=== PATIENT | female | born 1960 | race Caucasian/White ===

== ENCOUNTER 2020-06-03 17:32 | Emergency (ER) | payer MEDICAID ==
[~2020-06-03] VITALS: Ht 165.1 cm; Wt 54.4 kg
[2020-06-03] MEDS ORDERED: LIRA0.6P2 SQ ×2 (17:48→19:42)
[2020-06-03] MEDS ORDERED: INSULIN REGULAR, HUMAN 300 UNIT/3 ML VIAL IV ONE (18:00)
[2020-06-03] MEDS ORDERED: IV NORMAL SALINE 1000 ML BAG IV ONE (18:00)
[2020-06-03] MEDS ORDERED: INSULIN REGULAR, HUMAN 100 UNIT in IV NORMAL SALINE 100 ML IV ONE ×2 (18:00)
[2020-06-03] MEDS ORDERED: LOSA25TA27 PO (18:13)
[2020-06-03] MEDS ORDERED: ATOR80TA PO (18:13)
[2020-06-03] MEDS ORDERED: METF-440 PO (18:13)
[2020-06-03] MEDS ORDERED: METO-357 PO (18:13)
[2020-06-03] MEDS ORDERED: CHOL10005 PO (18:13)
[2020-06-03] MEDS ORDERED: ESCI10TA PO (18:13)
[2020-06-03] MEDS ORDERED: EMPA1TAB7 PO (18:13)
[2020-06-03 18:15] LABS: BASOPHILS # (AUTO) 0.1 K/uL (0.0-8.0); BASOPHILS % (AUTO) 0.8 % (0.0-2.0); EOSINOPHILS # (AUTO) 0.1 K/uL (0.0-0.7); EOSINOPHILS % (AUTO) 1.4 % (0.0-7.0); HEMATOCRIT 43.7 % (31.2-41.9); LYMPHOCYTES # (AUTO) 1.6 K/uL (20.0-40.0); LYMPHOCYTES % (AUTO) 24.8 % (20.5-51.5); MEAN CORPUSCULAR HEMOGLOBIN 30.8 uug (24.7-32.8); MEAN CORPUSCULAR HGB CONC 34 g/dL (32.3-35.6); MEAN CORPUSCULAR VOLUME 89.9 fL (75.5-95.3); MONOCYTES # (AUTO) 0.6 K/uL (2.0-10.0); MONOCYTES % (AUTO) 8.8 % (0.0-11.0); NEUTROPHILS # (AUTO) 4.1 K/uL (1.8-8.9); NEUTROPHILS % (AUTO) 64.2 % (38.5-71.5); PLATELET COUNT (AUTO) 162 K/uL (179-408); RED BLOOD CELL COUNT(AUTO) 4.86 MIL/uL (3.63-4.92); WHITE BLOOD COUNT (AUTO) 6.4 K/uL (3.8-11.8)
[2020-06-03] MEDS ORDERED: INSULIN REGULAR, HUMAN 300 UNIT/3 ML VIAL ONE (18:22)
[2020-06-03 18:30] LABS: BILIRUBIN,DIRECT 0.1 mg/dL (0.0-0.2); BILIRUBIN,TOTAL 0.5 mg/dL (0.2-1.0); CREATININE 0.9 mg/dL (0.6-1.3); TOTAL PROTEIN, SERUM 7.1 g/dL (6.4-8.2)
[2020-06-03] MEDS ORDERED: POTASSIUM CHLORIDE 20 MEQ TAB.PRT.SR PO ONE (19:00)
[2020-06-03] MEDS ORDERED: POTASSIUM CHLORIDE 20 MEQ TAB.PRT.SR ONE (19:09)
[2020-06-03] MEDS ORDERED: INSU100V7 SQ (19:42)
--- NOTE | 2020-06-03 19:50 | NUR ---
DR RENTERIA MADE PATIENT AWARE OF TEST RESULTS.
--- NOTE | 2020-06-03 19:55 | NUR ---
Patient discharged to home in stable condition. Written and verbal after care instructions given. Patient verbalizes understanding of instructions. Stressed follow up or return to ER for worsening s/s.
[2020-06-03 20:07] VITALS: BP 109/61
== END 2020-06-03 20:08 | disposition home or self-care (01) ==
LOC: ER 17:39
DX: E11.65 Type 2 diabetes mellitus with hyperglycemia (principal); Z79.4 Long term (current) use of insulin; I10 Essential (primary) hypertension; Z79.899 Other long term (current) drug therapy; Z20.822 Contact with and (suspected) exposure to COVID-19
CPT/HCPCS: 36415; 71045; 80048; 80076; 82962 ×2; 83690; 85025; 87426; 93005; 96361; 96374; 99285; J1815 ×2; U0003; A4663; J3490; J7030

== ENCOUNTER 2021-03-07 19:19 | Emergency (ER) | payer MEDICAID ==
[~2021-03-07] VITALS: Ht 165.1 cm; Wt 74.8 kg
[~2021-03-07 19:19] MED LIST: ATOR80TA PO; CHOL10005 PO; EMPA1TAB7 PO; ESCI10TA PO; INSU100V7 SQ; LIRA0.6P2 SQ; LOSA25TA27 PO; METF-440 PO; METO-357 PO
--- NOTE | 2021-03-07 21:33 | NUR ---
PATIENT WALKED INTO C/O ABDOMINAL PAIN, NAUSEA, CHILLS AND HOT FLASHES THAT STARTED 2 DAYS AGO.
[2021-03-07] MEDS ORDERED: IV NORMAL SALINE 1000 ML BAG IV ONE (21:45)
[2021-03-07 21:51] LABS: HEMATOCRIT 44.3 % (31.2-41.9); MEAN CORPUSCULAR HEMOGLOBIN 29.7 uug (24.7-32.8); MEAN CORPUSCULAR VOLUME 88.6 fL (75.5-95.3); PLATELET COUNT (AUTO) 203 K/uL (179-408)
[2021-03-07 21:54] LABS: POTASSIUM 4.7 mmol/L (3.5-5.1)
[2021-03-07 22:00] LABS: BILIRUBIN,DIRECT 0.2 mg/dL (0.0-0.2); BILIRUBIN,TOTAL 0.7 mg/dL (0.2-1.0); TOTAL PROTEIN, SERUM 7.8 g/dL (6.4-8.2)
--- NOTE | 2021-03-07 22:15 | NUR ---
Dr. Best on bedside for MSE.
[2021-03-07] MEDS ORDERED: MORPHINE SULFATE 4 MG/1 ML DISP.SYRIN IV ONE (22:30)
[2021-03-07] MEDS ORDERED: ONDANSETRON 4 MG/2 ML VIAL IV ONE (22:30)
[2021-03-07] MEDS ORDERED: MORPHINE SULFATE 4 MG/1 ML DISP.SYRIN ONE (22:36)
[2021-03-07] MEDS ORDERED: ONDANSETRON 4 MG/2 ML VIAL ONE (22:36)
[2021-03-08] MEDS ORDERED: FAMOTIDINE. 20 MG/2 ML VIAL IV ONE (00:15)
[2021-03-08 00:31] LABS: *BILIRUBIN,URIN NEGATIVE (NEGATIVE); *BLOOD, URINE 1+ (NEGATIVE); *CLARITY,URINE CLEAR (CLEAR); *COLOR,URINE YELLOW (YELLOW); *KETONES,URINE TRACE (NEGATIVE); *UROBILINOGEN,URINE 0.2 E.U./dl (NORMAL); LEUKOCYTE ESTERASE ,URINE NEGATIVE (NEGATIVE); NITRITE, URINE NEGATIVE (NEGATIVE); UGLUCOSE 3+ (NEGATIVE)
--- NOTE | 2021-03-08 00:37 | NUR ---
Pt requested for some water, Okayed by Dr. Best and given.
[2021-03-08 00:44] LABS: BACTERIA,URINE NONE SEEN /HPF (NONE SEEN); SQUAMOUS EPITHELIAL CELL,UR NONE SEEN /HPF (NONE SEEN); WBC,URINE NONE SEEN /HPF (0-3)
--- NOTE | 2021-03-08 01:51 | NUR ---
Spoke to Gillina/Safia and given needed informations.
[2021-03-08] MEDS ORDERED: ONDANSETRON 4 MG/2 ML VIAL IV ONE (02:00)
[2021-03-08] MEDS ORDERED: FENTANYL CITRATE 100 MCG/2 ML AMPUL IV ONE (02:00)
[2021-03-08] MEDS ORDERED: FENTANYL CITRATE 100 MCG/2 ML AMPUL ONE (02:08)
[2021-03-08] MEDS ORDERED: GUAIFENESIN/DEXTROMETHORPHAN 5 ML UDC ONE (03:29)
--- NOTE | 2021-03-08 03:38 | NUR ---
Telephone call from Gillian Abad CM. Update given and stated she will try to call Dr. Pepper again to call Dr. Best here. Plan to admit patient to [facility].
--- NOTE | 2021-03-08 04:05 | NUR ---
Dr. Best on bedside.
--- NOTE | 2021-03-08 04:10 | NUR ---
Telephine call to Gillian Abad and informed her that we are still awaiting Dr Pepper to call. Jenniffer will page Dr. Pepper again. Awaiting for call back.
--- NOTE | 2021-03-08 04:36 | NUR ---
Dr. Pepper foundation engineer with Dr. Best.
--- NOTE | 2021-03-08 04:42 | NUR ---
Dr. Best on bedside.
[2021-03-08] MEDS ORDERED: IV NORMAL SALINE 250 ML IV ONE (05:03)
[2021-03-08] MEDS ORDERED: SWABABLE VALVE TRANSFER SET EA MC ONE (05:03)
[2021-03-08] MEDS ORDERED: IOHEXOL 300MG/ML 100 ML INFUS..BTL ONE (05:03)
--- NOTE | 2021-03-08 05:14 | NUR ---
Back from CT.
--- NOTE | 2021-03-08 05:21 | NUR ---
Pt requested for orange juice and given.
--- NOTE | 2021-03-08 06:16 | NUR ---
Telephone call to DEQUAN mooney requested to page Dr. Pepper and states understanding.
--- NOTE | 2021-03-08 06:25 | NUR ---
Dr Best station supervisor with Dr Pepper.
--- NOTE | 2021-03-08 06:28 | NUR ---
Telephone call to DEQUAN Abad and informed that pt will be discharge home.
[2021-03-08] MEDS ORDERED: METO-295 PO (06:40)
[2021-03-08] MEDS ORDERED: ACET1TAB23 PO (06:40)
[2021-03-08] MEDS ORDERED: DIPH25CA83 PO (06:40)
[2021-03-08 06:52] VITALS: BP 134/55
--- NOTE | 2021-03-08 06:52 | NUR ---
Patient discharged to home in stable condition. Written and verbal after care instructions given. Patient verbalizes understanding of instructions. Stressed follow up or return to ER for worsening s/s. Patient ambulated fr the ER with steady gait. All belongings with patient.
== END 2021-03-08 06:53 | disposition home or self-care (01) ==
LOC: ER 19:19
DX: K52.9 Noninfective gastroenteritis and colitis, unspecified (principal); E86.0 Dehydration; I10 Essential (primary) hypertension; E11.9 Type 2 diabetes mellitus without complications; Z79.4 Long term (current) use of insulin; Z79.84 Long term (current) use of oral hypoglycemic drugs; R94.31 Abnormal electrocardiogram [ECG] [EKG]; Z20.822 Contact with and (suspected) exposure to COVID-19
CPT/HCPCS: 36415; 74177; 80048; 80076; 81001; 83690; 84484; 85025; 87426; 93005; 96374; 96375 ×2; 96376; 99285; J2270; J2405 ×2; J3010; J3490; Q9967; 70030-TC; J7030; J7050

== ENCOUNTER 2021-08-17 17:47 | Emergency (ER) | payer SELFPAY ==
[~2021-08-17 17:47] MED LIST changes: +ACET1TAB23 PO; +DIPH25CA83 PO; +METO-295 PO
== END 2021-08-17 18:27 | disposition left against medical advice (07) ==
LOC: ER 17:49
DX: Z53.21 Procedure and treatment not carried out due to patient leaving prior to being seen by health care provider (principal)